=== PATIENT | male | born 1970 | race Caucasian/White ===

== ENCOUNTER → 2018-11-14 | Outpatient (CLI) | payer MEDICARE, MEDICAID ==
--- NOTE | 2018-11-14 15:06 | REP ---
CT ABDOMEN AND PELVIS WITHOUT IV OR ORAL CONTRAST: HISTORY: Bladder stone. Urinary retention. No comparison imaging. CT FINDINGS: Preliminary digital software quality analyst radiograph shows an unremarkable bowel gas pattern. Jackson catheter is noted. Patient's arms remain in the field of view. The lung bases are clear on axial CT images. The liver and the spleen appear normal in size and homogeneous in texture. No abnormalities noted in the gallbladder. Pancreas shows no abnormality. No evidence of adrenal mass is seen on either side. There is no evidence of hydronephrosis. No intrarenal calculus is seen. Jackson catheter is seen in place in the urinary bladder along with some air. The bladder is otherwise empty. No bladder calculus is appreciated. Prostate and seminal vesicles are symmetric. Moderate stool is seen in the rectum. Normal appendix is visible. Small and large bowel loops are unremarkable. No bony destructive lesion is appreciated. IMPRESSION: No urinary tract calculus or hydronephrosis is seen. Moderate stool filled rectum. Jackson catheter in place. Electronically Signed by Nathen Jones MD 11/14/2018 05:11 P
== END ==
LOC: M RAD 12:35
PROVIDERS: ATTEND Nurse Practitioner Women's Health
DX: R33.9 Retention of urine, unspecified (principal); N21.0 Calculus in bladder
CPT/HCPCS: 74176; G0463